=== PATIENT | male | born 1950 | race Caucasian/White ===

== ENCOUNTER 2018-02-04 20:24 | Observation (INO) | payer MEDICARE, MEDICAID ==
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
[2018-02-04] MEDS ORDERED: cefTRIAXone(*) 1 GM in NS 0.9% 50 ML* 50 ML IVPB ONE (21:17)
[2018-02-04] MEDS: NS 0.9% 1000 ML*IV.FLUID IV ONE ×3 (21:28→23:44)
--- NOTE | 2018-02-04 21:36 | RAD ---
EXAM: CT Head Without Intravenous Contrast CLINICAL HISTORY: 68 years old, male; Signs and symptoms; Other: AMS; Additional info: Head trauma, altered mental status. Ems reports stated pt was confused this am, when she got home this evening he was confused when she got home. TECHNIQUE: Axial computed tomography images of the head/brain without intravenous contrast. All CT scans at this facility use at least one of these dose optimization techniques: automated exposure control; mA and/or kV adjustment per patient size (includes targeted exams where dose is matched to clinical indication); or iterative reconstruction. COMPARISON: No relevant prior studies available. FINDINGS: Brain: Mild periventricular and subcortical low attenuation without adjacent mass effect. Chronic lacunar infarct right frontal lobe white matter. No acute ischemic changes, extra axial fluid collections, intraparenchymal hemorrhage, or midline shift. Ventricles: The ventricles and extraventricular CSF spaces are widened although symmetrically positioned along the midline. Bones/joints: No acute fracture. No suspicious osseous lesions. Soft tissues: Normal. Vasculature: The vasculature demonstrates diffuse mild atherosclerotic calcification. Sinuses: Normal as visualized. Mastoid air cells: Normal as visualized. No mastoid effusion. IMPRESSION: 1. No acute intracranial abnormality. 2. Age-related atrophy and mild chronic small vessel ischemic disease.
[2018-02-04 21:48] LABS: INR 0.98 (0.77-1.02)
[2018-02-04 21:52] LABS: EGFR Non-African American 77.7 (>60)
[2018-02-04 22:04] LABS: Hematocrit 45 % (42-52); Hemoglobin 16.3 g/dl (14.0-18.0); Mean Corpuscular HGB Conc 36 g/dl (31-36); Mean Corpuscular Hemoglobin 31 pg (27-31); Mean Corpuscular Volume 87 fL (80-94); Red Blood Count 5.19 10^6/ul (4.00-5.40); Red Cell Distribution Width 13 % (10.5-15)
[2018-02-04 22:08] LABS: ABS Basophils 0.1 10^3/ul (0-0.2); ABS Eosinophils 0 10^3/ul (0-0.6); ABS Lymphocytes 0.8 10^3/ul (1.0-4.8); ABS Monocytes 0.5 10^3/ul (0-0.8); ABS Neutrophils 7.6 10^3/ul (1.5-7.7); ABS Nucleated RBC 0 10^3/ul; Eosinophil % 0.3 % (0-6); Lymphocyte % 8.5 % (25-47); Nucleated Red Blood Cells % 0.1; Platelet Count 104 10^3/ul (150-450)
[2018-02-05 00:21] LABS: Urine Appearance Cloudy; Urine Blood 3+ (Negative); Urine Color Yellow; Urine Ketones 1+ (Negative); Urine Protein 3+(>=500 mg/dL) (Negative); Urine Red Blood Cell 3+(>10/hpf) (Absent); Urine Specific Gravity 1.027 (1.010-1.030); Urine Urobilinogen Negative (Negative); Urine White Blood Cell Trace(0-5/hpf) (Absent)
[2018-02-05] MEDS ORDERED: Dextrose 50% Syringe 50 ML* 25 GM/50 ML SYRINGE IV PUSH PRN (06:20)
--- NOTE | 2018-02-05 06:27 | HP ---
H&P (Free Text) History and Physical: PCP: Jann Medley NP Date/Time: 02/05/2018 0350 CC: fever HPI: Mr Granados is a 68YO male HX DM2, HTN, HLD who reports onset 3-4 days ago of F /C and generalized malaise. He was seen and released from ED last night with a prescription for doxycycline for a HX of multiple tick bites over the preceding weeks. Today he had recurrent, higher fever and rigors for which he represents. He admits to a dry cough, but denies sweats, N/V/D, abdominal pain, SOB, congestion, chest pain, B/U/F of urine, back pain, open wounds, sores, and rash. Family reported to ED that he had been intermittently confused today as well. He does report a pinpoint pain just superior to bridge of his nose, but no neck pain or headache. PMedHx DM2 HTN HLD PSurgHx appendectomy SocHx: no tobacco, alcohol, or recreational drugs; lives with his girlfriend, has 2 adult children; works in [employer]; full code status FamHx: Mother passed in her 40s 2nd cancer. Father passed in his 80s 2nd complications of DM. ROS: as above, otherwise reviewed and all were negative vitals: reviewed Constitutional: NAD, normally developed, obese unkempt white male appearing older than his reported age HEENM: atraumatic; sclera/conjunctiva: anicteric/clear; hearing: clinically intact; oropharynx: clear, mucosa moist Neck: soft tissue: no nuchal rigidity; thyroid: normal Pulmonary: diminished bilaterally with scant coarse L basilar crackle, fair aeration, no accessory muscle use CV: RR/RR, normal S1S2, no carotid bruit, no jugular venous distention, 1+ B DP/ PT, no edema Abdominal: soft, non-distended, non-tender, no rebound/guarding/rigidity, normoactive bowel sounds, no hepatosplenomegaly or masses, no costovertebral angle tenderness Musculoskeletal: general: grossly intact, non-tender Integumental: normal appearance and texture of exposed skin Psychiatric orientation: AA&O to PPS affect: calm mood: cooperative eye contact: fair content: mostly reliable responses: timely insight: poor Testing: unavailable, not printed prior to EMR downtime Impression: 68M HX DM2, HTN, HLD presents with fever of uncertain etiology, suspect L basilar pneumonia; HX tick bites DIAGNOSIS & PLAN Primary fever of uncertain etiology : IV azithromycin & ceftriaxone : blood CXs : supportive care HX tick bites : continue PO doxycycline Secondary DM2 : correctional insulin HTN : review meds once reconciled HLD : review meds once reconciled Admission Rational: observation for fever of uncertain origin DVTp: heparin SQ Code Status: full HCP: son
[2018-02-05] MEDS ORDERED: hydrALAZINE IV* 20 MG/ML VIAL IV PRN (06:30)
[2018-02-05 06:58] LABS: ABS Basophils 0 10^3/ul (0-0.2); ABS Eosinophils 0.1 10^3/ul (0-0.6); ABS Lymphocytes 0.6 10^3/ul (1.0-4.8); ABS Monocytes 0.5 10^3/ul (0-0.8); ABS Neutrophils 6.6 10^3/ul (1.5-7.7); ABS Nucleated RBC 0 10^3/ul; Eosinophil % 0.7 % (0-6); Hematocrit 43 % (42-52); Hemoglobin 15.3 g/dl (14.0-18.0); Mean Corpuscular HGB Conc 35 g/dl (31-36); Mean Corpuscular Hemoglobin 31 pg (27-31); Mean Corpuscular Volume 88 fL (80-94); Nucleated Red Blood Cells % 0.1; Platelet Count 87 10^3/ul (150-450); Red Blood Count 4.92 10^6/ul (4.00-5.40); Red Cell Distribution Width 13 % (10.5-15); White Blood Count 7.8 10^3/ul (3.5-10.8)
[2018-02-05] MEDS: Heparin VIAL(*) 5000 UNITS/ML VIAL (FIVE THOUSAND) SUBCUT SCH ×3 (07:40→22:05)
[2018-02-05] MEDS: DOXYcycline CAP(*) 100 MG PO SCH ×2 (07:40→22:07)
[2018-02-05] MEDS: Omeprazole CAP* 20 MG PO SCH (07:40)
--- NOTE | 2018-02-05 07:41 | RAD ---
INDICATION: Fever and cough. COMPARISON: There are no relevant prior studies available for comparison. TECHNIQUE: AP and lateral views of the chest were obtained. FINDINGS: The heart is within normal limits in size. Mediastinal and hilar contours appear within normal limits. The lungs are underinflated and clear. No pleural effusion is seen. IMPRESSION: NO EVIDENCE FOR ACTIVE CARDIOPULMONARY DISEASE. R0
[2018-02-05] MEDS: NS 0.9% 1000 ML* 1,000 ML IV SCH (07:44)
[2018-02-05] MEDS: Acetaminophen TAB* 325 MG PO PRN ×2 (07:52→18:03)
[2018-02-05] MEDS: Docusate CAP* 100 MG PO SCH ×2 (07:59→22:07)
[2018-02-05] MEDS ORDERED: Azithromycin IV(*) 500 MG in NS 0.9% 250 ML* 250 ML IVPB SCH (08:00)
[2018-02-05] MEDS ORDERED: Ondansetron INJ* 2 MG/ML VIAL IV PRN (08:01)
[2018-02-05] MEDS ORDERED: PROCHLORPERAZINE INJ 5 MG/ML 2 ML VIAL IV PRN (08:02)
--- NOTE | 2018-02-05 08:47 | PN ---
Subjective Date of Service: 02/05/18 Interval History: Mr. Granados reports that he is feeling well this morning. He denies chest pain, SOB, nausea, or abdominal pain. He does complain of a pain in the center of his forehead, between his eyebrows and note is made of a small papule. His notes that he has had several years of declining mental status with worsening confusion and memory loss for which he has a diagnosis of early dementia. He has also had worsening falls over the past 7-8 months, now falling multiple times a day. This has been attributed to severe peripheral neuropathy from long standing diabetes. He developed a fever and malaise over the past 2-3 days for which he was brought to the hospital. She did not note any other symptoms from him other than mild diarrhea in the setting of constipation. Objective Active Medications: Acetaminophen (Tylenol Tab*) 650 mg PO Q6H PRN Dextrose (D50w Syringe 50 Ml*) 12.5 gm IV PUSH .FOR FS < 60 - SS PRN Docusate Sodium (Colace Cap*) 200 mg PO BID MYRTLE Doxycycline Hyclate (Vibramycin Cap(*)) 100 mg PO BID MYRTLE Heparin Sodium (Porcine) (Heparin Vial(*)) 5,000 units SUBCUT Q8HR MYRLTE Hydralazine HCl (Apresoline Iv*) 10 mg IV Q4H PRN Azithromycin 500 mg/ Sodium (Chloride) 250 mls @ 250 mls/hr IVPB Q24H MYRTLE Ceftriaxone Sodium 1 gm/ (Sodium Chloride) 50 mls @ 200 mls/hr IVPB Q24H MYRTLE Sodium Chloride (Ns 0.9% 1000 Ml*) 1,000 mls @ 75 mls/hr IV PER RATE [facility] Insulin Human Lispro (Humalog*) 0 units SUBCUT ACHS MYRTLE; Protocol Omeprazole (Prilosec Cap*) 20 mg PO 0600 MYRTLE Prochlorperazine Edisylate (Compazine Inj*) 5 mg IV Q6H PRN Vital Signs: Temp Pulse Resp BP Pulse Ox 98.3 F 92 26 170/102 98 02/05/18 07:27 02/05/18 07:27 02/05/18 07:27 02/05/18 07:48 02/05/18 07:27 Oxygen Devices in Use Now: None Appearance: Male sitting up on edge of bed in NAD Eyes: No Scleral Icterus Ears/Nose/Mouth/Throat: Mucous Membranes Moist Neck: NL Appearance and Movements; NL JVP, Trachea Midline Respiratory: Symmetrical Chest Expansion and Respiratory Effort, Clear to Auscultation Cardiovascular: NL Sounds; No Murmurs; No JVD, No Edema Abdominal: NL Sounds; No Tenderness; No Distention Lymphatic: No Cervical Adenopathy Extremities: No Edema Skin: - Neurological: NL Muscle Strength and Tone, - - Alert, oriented to self and place Nutrition: Taking PO's Result Diagrams: 02/05/18 06:27 02/05/18 06:27 Assess/Plan/Problems-Billing Assessment: Mr. Granados is a 68 yo M with a PMH of DM, HTN, peripheral neuropathy and dementia who was admitted on 02/05/18 with fever of unknown origin. - Patient Problems (1) Fever Comment: - Tmax 100.4 overnight. Unknown etiology. No leukocytosis, CRP ~90. Chest xray clear. UA negative. Blood cultures pending. - Patient's states that there was a tick bite "a long time ago." Patient noted to be coughing throughout my exam, lungs CTAB. - Now with vomiting x 1 and report of diarrhea in setting of constipation, check abd xray. - Continue ceftriaxone with doxycycline for now. (2) Diabetes Comment: - Hold glipizide. - Continue reduced dose lantus. Blood glucose qAC with lispro SSI (3) Hypertension Comment: - SBP 160-170s. - Resume home enalapril and carvedilol. (4) DVT prophylaxis Comment: - Heparin SQ. (5) Full code status Comment: Status and Disposition: Inpatient. Anticipate discharge to home when medically stable.
[2018-02-05 09:04] LABS: EGFR Non-African American 90.6 (>60)
[2018-02-05] MEDS: Insulin LISPRO* 1 UNITS UNIT SUBCUT SCH ×4 (10:04→22:05)
[2018-02-05] MEDS: Carvedilol TAB* 6.25 MG PO SCH ×2 (10:09→22:07)
[2018-02-05] MEDS: Insulin GLARGINE(*) 1 UNITS UNIT SUBCUT SCH ×2 (10:09→22:05)
[2018-02-05] MEDS: Enalapril TAB* 20 MG PO SCH (10:09)
--- NOTE | 2018-02-05 11:58 | RAD ---
HISTORY: diarrhea, vomiting, constipation COMPARISONS: None VIEWS: Frontal supine and upright views of the abdomen. FINDINGS: BOWEL: There is a nonobstructive bowel gas pattern. CALCULI: There are no abnormal calculi. BONES AND SOFT TISSUES: Mild degenerative changes are noted. OTHER FINDINGS: The lung bases are clear. There is no subphrenic gas. IMPRESSION: NONOBSTRUCTIVE BOWEL GAS PATTERN.
[2018-02-05] MEDS ORDERED: cefTRIAXone* 1 GM in NS 0.9% 50 ML BAG IVPB SCH (21:00)
[2018-02-06] MEDS: NS 0.9% 1000 ML* 1,000 ML IV SCH (03:36)
[2018-02-06] MEDS: Omeprazole CAP* 20 MG PO SCH (05:41)
[2018-02-06] MEDS: Heparin VIAL(*) 5000 UNITS/ML VIAL (FIVE THOUSAND) SUBCUT SCH ×2 (05:41→17:17)
[2018-02-06] MEDS: Carvedilol TAB* 6.25 MG PO SCH (08:30)
[2018-02-06] MEDS: Enalapril TAB* 20 MG PO SCH (08:30)
[2018-02-06] MEDS: DOXYcycline CAP(*) 100 MG PO SCH (08:30)
[2018-02-06] MEDS: Docusate CAP* 100 MG PO SCH (08:30)
[2018-02-06] MEDS: Acetaminophen TAB* 325 MG PO PRN ×2 (08:30→16:33)
[2018-02-06] MEDS: Insulin GLARGINE(*) 1 UNITS UNIT SUBCUT SCH (08:32)
[2018-02-06] MEDS: Insulin LISPRO* 1 UNITS UNIT SUBCUT SCH ×3 (08:32→17:18)
--- NOTE | 2018-02-06 08:43 | PN ---
Subjective Date of Service: 02/06/18 Interval History: Mr. Granados denies complaint today. He denies malaise, chest pain, SOB, nausea, or abdominal pain. Objective Active Medications: Acetaminophen (Tylenol Tab*) 650 mg PO Q6H PRN Carvedilol (Coreg Tab*) 12.5 mg PO BID [facility] Dextrose (D50w Syringe 50 Ml*) 12.5 gm IV PUSH .FOR FS < 60 - SS PRN Docusate Sodium (Colace Cap*) 200 mg PO BID MYRTEL Doxycycline Hyclate (Vibramycin Cap(*)) 100 mg PO BID MYRTLE Enalapril Maleate (Vasotec Tab*) 20 mg PO DAILY [facility] Heparin Sodium (Porcine) (Heparin Vial(*)) 5,000 units SUBCUT Q8HR MYRTLE Hydralazine HCl (Apresoline Iv*) 10 mg IV Q4H PRN Ceftriaxone Sodium 1 gm/ (Sodium Chloride) 50 mls @ 200 mls/hr IVPB Q24H MYRTLE Sodium Chloride (Ns 0.9% 1000 Ml*) 1,000 mls @ 75 mls/hr IV PER RATE MYRTLE Insulin Glargine (Lantus(*)) 5 units SUBCUT Q12H MYRTLE Insulin Human Lispro (Humalog*) 0 units SUBCUT ACHS MYRTLE; Protocol Omeprazole (Prilosec Cap*) 20 mg PO 0600 MYRTLE Prochlorperazine Edisylate (Compazine Inj*) 5 mg IV Q6H PRN Vital Signs: Temp Pulse Resp BP Pulse Ox 98.8 F 71 20 142/79 98 02/06/18 07:07 02/06/18 07:07 02/06/18 07:07 02/06/18 07:07 02/06/18 07:07 Oxygen Devices in Use Now: None Appearance: Male lying in bed in NAD Eyes: No Scleral Icterus Ears/Nose/Mouth/Throat: Mucous Membranes Moist Respiratory: Symmetrical Chest Expansion and Respiratory Effort, Clear to Auscultation Cardiovascular: NL Sounds; No Murmurs; No JVD, No Edema Abdominal: NL Sounds; No Tenderness; No Distention Lymphatic: No Cervical Adenopathy Extremities: No Edema Skin: No Rash or Ulcers Neurological: NL Muscle Strength and Tone, - - Alert and oriented x 2 Nutrition: Taking PO's Result Diagrams: 02/05/18 06:27 02/05/18 06:27 Assess/Plan/Problems-Billing Assessment: Mr. Granados is a 68 yo M with a PMH of DM, HTN, peripheral neuropathy and dementia who was admitted on 02/05/18 with fever of unknown origin. - Patient Problems (1) Fever Comment: - No fever since arrival, temp max only 100.4. Unknown etiology. No leukocytosis, CRP ~90. Chest xray clear. UA negative. Blood cultures pending. Suspect viral illness as testing has been negative, perhaps lyme. Patient's states that there was a tick bite "a long time ago." - No further vomiting, abd xray benign - Complete course of doxycycline for tick exposure. Lyme serology pending. (2) Diabetes Comment: - Resume home glipizide and lantus. (3) Hypertension Comment: - SBP 160-170s. - Continue enalapril and carvedilol. (4) DVT prophylaxis Comment: - Heparin SQ. (5) Full code status Comment: Status and Disposition: Inpatient. Discharge to home.
[2018-02-06 15:11] VITALS: BP 130/70
--- NOTE | 2018-02-06 21:43 | DS ---
CC: Zoya Medley NP * [facility] MEDICINE DISCHARGE SUMMARY: DATE OF ADMISSION: 02/05/18 DATE OF DISCHARGE: 02/06/18 PRIMARY CARE PHYSICIAN: Zoya Medley NP ATTENDING PHYSICIAN: Richard Trevizo MD * (dictation provided by Maryjane Eckert NP). PRIMARY DIAGNOSIS: Fever with suspected viral illness, possibly Lyme. SECONDARY DIAGNOSES: 1. Type 2 diabetes, insulin dependent. 2. Hypertension. 3. Hyperlipidemia. MEDICATIONS AT THE TIME OF DISCHARGE: 1. Glipizide 10 mg p.o. daily. 2. Sitagliptin 100 mg p.o. daily. 3. [place]-3 fatty acid 1 cap p.o. daily. 4. Lantus insulin 25 units subcutaneously q.12 hours. 5. Enalapril 20 mg p.o. daily. 6. Carvedilol 12.5 mg p.o. b.i.d. 7. Doxycycline 100 mg p.o. b.i.d. HOSPITAL COURSE: Mr. Granados is a 68-year-old male with a past medical history of dementia, declining functional status, diabetes, hypertension, and hyperlipidemia who was admitted to the hospital on 02/02/18 with concern for fever and malaise and increased weakness. Please see the dictated H and P from Dr. Chencho Antunez for complete details. In brief, the patient's reported that the patient had been diagnosed with pre-dementia approximately 3 years ago and had a slow steady decline since then. He has had increasing falls starting 7 to 8 months ago and now can fall multiple times per day. He has increasing confusion at times, word finding difficulty, and memory loss. He is following closely outpatient with multiple providers and has ongoing workup of this chronic issue. In the setting of this, the patient developed a fever a few days prior to arrival with increasing malaise and fatigue and therefore, was brought to our hospital for emergent evaluation. In the emergency room, he had an elevated temperature, but only to 100.4. His labs showed no leukocytosis. His BUN and creatinine were normal. His urinalysis showed no evidence of infection. He had a chest x-ray that showed no infiltrate. The patient's reported some exposure to tick bites. Mr. Granados was admitted to the hospital. He was initially treated with ceftriaxone and doxycycline for possibility of early pneumonia, but then has been transitioned over to doxycycline only as there is no clear evidence of pneumonia on chest x-ray or via other criteria. The patient had 1 episode of vomiting and had some report of constipation at home. An abdominal x-ray was obtained that showed A nonspecific bowel gas pattern. He has had no further vomiting. He is tolerating oral intake well. Mr. Granados has been monitored in the hospital. His white count remains normal. He had a CRP that was 93.06. His blood cultures were drawn and they continue to be negative as of today as is his urine culture. I suspect perhaps Mr. Granados had a viral illness. Perhaps, he had Lyme disease given his tick exposure. Plan to discharge to home on 2-week course of doxycycline pending evaluation of the Lyme serologies, which were sent by his primary care physician in 4 to 5 days when those results are available. Mr. Granados has ongoing issues with worsening memory and falls and is undergoing extensive outpatient workup at [facility] in [place] in conjunction with his [place] providers. I have spoken with the , she states that she has good close followup along this issue and will continue to pursue this workup with her primary care physician. Mr. Granados is medically stable for discharge to home. DISPOSITION: Home. DIET: Low carb. ACTIVITY: As tolerated. FOLLOWUP PLANS: Please follow up with nurse practitioner, Jasmyne, regarding results of Lyme serology testing and ongoing evaluation for dementia and falls. TREVOR SPENT: Approximately 60 minutes were spent on the discharge of this patient , more than half time was spent with the patient at the bedside reviewing the events leading up to this hospitalization. MARYJANE ECKERT NP [id number]/[facility] #: [id number] [place]
== END 2018-02-06 17:45 | disposition home or self-care (01) ==
LOC: ED 20:24 → MED 02-05 05:25
PROVIDERS: ADMIT Hospitalist; ATTEND Internal Medicine
DX: R50.9 Fever, unspecified (principal); B34.9 Viral infection, unspecified; E11.9 Type 2 diabetes mellitus without complications; Z79.4 Long term (current) use of insulin; I10 Essential (primary) hypertension; E78.5 Hyperlipidemia, unspecified; R05 Cough; R51 Headache; R41.0 Disorientation, unspecified
CPT/HCPCS: 36415; 70450; 71046; 74019; 80048; 80053; 81003; 81015; 83605; 84484; 85025; 85060; 85610; 86140; 86618; 86703; 86706; 86803; 87040; 87086; 87340; 93005; 96365; 96375; 99284; A9270-GY; G0378; G8978-GP-CI; G8979-GP-CI; G8980-GP-CI; J0360; J0456; J0696; J0780; J1644